=== PATIENT | female | born 1965 | race Caucasian/White ===

== ENCOUNTER 2016-08-19 18:49 | Inpatient (IN) | payer OTHER, SELFPAY ==
[~2016-08-19] VITALS: Ht 177.8 cm; Wt 98.0 kg
--- NOTE | ~2016-08-19 | HP ---
ADMIT: 08/19/2016 RM/LOC: 504 [facility] MR#: [id number] [address] [address] CLAUDIA CARY [address] [place] [address] History and Physical SEX: F AGE: 51 : 1965 DATE OF SERVICE: 08/20/2016 CHIEF COMPLAINT: Right medial ankle swelling, pain, and redness. HISTORY OF PRESENT ILLNESS: Claudia is a very pleasant 51-year-old female, who presented to the [facility] Emergency Department with approximately a week of progressive worsening swelling, redness, and pain, and again with redness extending up her medial calf. This all started a week ago when she was bit in her backyard by a strange dog. She began having fevers in the last couple of days and again noticed redness streaking up her calf. She was subsequently admitted for a cellulitis. PAST MEDICAL HISTORY: She has impaired fasting glucose, insomnia, and depression. ALLERGIES: NO KNOWN MEDICAL ALLERGIES. SOCIAL HISTORY: She is a nonsmoker. Denies any alcohol or recreational drug use. PAST SURGICAL HISTORY: Noncontributory. FAMILY HISTORY: Noncontributory. MEDICATIONS: Her outpatient medications include: 1. Metformin 500 mg daily. 2. Trazodone 100 mg at bedtime. 3. Effexor 225 mg daily. 4. Lipitor at bedtime. REVIEW OF SYSTEMS: As per HPI. All others reviewed and were negative. PHYSICAL EXAMINATION: VITAL SIGNS: Blood pressure is 112/77, pulse 73, respirations 16, temp 97.7, O2 saturation is 98% on room air. GENERAL: Awake, alert, no acute distress. Comfortable in a hospital bed. HEENT: Normocephalic, atraumatic. NECK: Supple. No lymphadenopathy. No thyromegaly. HEART: Regular rate and rhythm. No murmurs, gallops, or rubs. LUNGS: Clear to auscultation bilaterally. EXTREMITIES: Her right medial ankle has a fairly large area of fluctuance, identified right over the posterior tibial region of her malleolus with surrounding erythema measuring approximately 8 cm to 10 cm. Per Claudia's report, this looks significantly better than when she was admitted, and the redness streaking up her calf is essentially gone. She has been on Zosyn in the overnight. The area of greatest fluctuance was identified, and the abscess was anesthetized with 1% lidocaine without epinephrine. The skin was then cleansed with Betadine and the abscess cavity entered very carefully with an ADMIT: 08/19/2016 RM/LOC: 504 [facility] MR#: [id number] [address] [place] [id number] LUIS DANIELCLAUDIA Duarte [address] [place] [address] History and Physical SEX: F AGE: 51 : 1965 #11 blade yielding a large amount of cloudy purulent fluid. The abscess cavity was gently expressed and the cavity irrigated with copious amounts of saline. The wound was then packed with gauze and a pressure dressing applied. Wound culture was obtained. LABORATORY AND X-RAY DATA: Hemoglobin A1c was 5.5. CBC this morning shows a white count of 5.6, hemoglobin 11.4, platelet count of 340. Procalcitonin 0.05. CMP remarkable only for an albumin of 2.6 and glucose of 120. CRP was 3.63. X-ray of the ankle done through the Emergency Department showed no acute findings of the ankle, probable old avulsion fracture at the level of the lateral malleolus. ASSESSMENT: Right medial malleolus abscess secondary to dog bite, status post I and D and wound pack. PLAN: Plan today will be to keep Claudia on the Zosyn as she states clinically much of this is improving already. We will await the wound culture, tailor her antibiotics to orals as soon as possible. I will plan on managing this abscess cavity as an outpatient. Jabari Shepherd MD/ blayne JOB #: [id number] CC: Jabari Shepherd, Attending Physician Jabari Shepherd, Family Physician
--- NOTE | 2016-08-20 01:03 | ER ---
ADMIT: 08/19/2016 RM/LOC: ER [facility] MR#: [id number] [address] [address] TOMAS CARY [address] [place] [address] Emergency Room Report SEX: F AGE: 51 : 1965 DATE: 08/19/2016 HISTORY OF PRESENT ILLNESS: The patient is a 51-year-old female with past medical history of diabetic came to the ER with chief complaint of right ankle swelling and the right leg swelling and erythema and pain and fever, status post dog bite to the right leg and right ankle a week ago. The patient states she was bitten by a dog and at first there were some erythematous area, which extended from the ankle close to the knee and then it decreased and got close to the ankle erythema, but she noticed some fever developed and some induration and swelling in the medial malleolus questionable for pocket of pus versus induration. The patient complains of pain in the right ankle, but can do range of motion actively and passively. The patient has a history of diabetes and is on metformin. PHYSICAL EXAMINATION: VITAL SIGNS: The patient had temperature of 100.5, and heart rate was 73. The patient received Tylenol in the ER, the patient was in no obvious distress. HEAD AND NECK: Noncontributory. CHEST: Clear. ABDOMEN: Soft. EXTREMITIES: The patient had erythema in the dorsum of the right ankle extending to medial and lateral malleolus mostly on the medial, and there is some induration and swelling of the medial malleolus, the patient can do normal range of motion. Peripheral pulses are normal and capillary filling are normal. There were some puncture wound, dog bite wound in the medial malleolus, dorsum of the right foot and also proximal anterior leg. X-ray of the leg did not show any osteomyelitis or subcutaneous air or other fractures or pathologies, the patient's vaccination was not up-to-date and received tetanus shot in the ER, ESR was 57, CRP was 5.8 with WBC of 6.4 and lactic acid of 1.4, and the patient received 1 dose of Zosyn in the ER. The patient was admitted for further followups and treatment of right ankle cellulitis status post dog bite wound. Giacomo Barreto MD/ blayne JOB #: [id number] CC: Shashi Arriaza MD, Attending Physician Jabari Shepherd MD, Family Physician
[2016-08-22] MEDS ORDERED: GLUCOPHAGE-DPS500 MG PO (16:18)
[2016-08-22] MEDS ORDERED: ULTRAM DPS50 MG PO (16:19)
[2016-08-22] MEDS ORDERED: MOTRIN-DPS800 MG PO (16:19)
[2016-08-22] MEDS ORDERED: LIPITOR20 MG PO (16:19)
[2016-08-22] MEDS ORDERED: TYLENOL DPS325 MG PO (16:19)
[2016-08-22] MEDS ORDERED: EFFEXOR DPS75 MG PO (16:19)
[2016-08-22] MEDS ORDERED: DESYREL DPS100 MG PO (16:19)
[2016-08-22] MEDS ORDERED: CLEOCIN HCL300 MG PO (16:20)
[2016-08-22] MEDS ORDERED: AMOX TR-K CLV1 EAC4 PO (16:20)
--- NOTE | 2016-08-29 08:52 | DS ---
ADMIT: 08/19/2016 RM/LOC: 504 [facility] MR#: [id number] [address] [address] CLAUDIA CARY [address] [place] [address] Discharge Summary SEX: F AGE: 51 : 1965 ADMISSION DATE: 08/19/2016 DISCHARGE DATE: 08/21/2016 ADMITTING DIAGNOSIS: Right ankle cellulitis and abscess. DISCHARGE DIAGNOSIS: Right ankle cellulitis and abscess. CONSULTATIONS: None. PROCEDURES: Bedside irrigation and debridement, incision and debridement of a right medial malleolus abscess on 08/20/2016. HISTORY AND PHYSICAL EXAM: Claudia is a very pleasant, 51-year-old female who presented to [facility] Emergency Department with a week of progressively worsening swelling, redness, and pain extending up her medial calf. It all started after she was bitten in her backyard by a strange dog. She began having fevers, redness, and streaking up her calf. She was admitted for cellulitis. HOSPITAL COURSE: She was started on intravenous Zosyn and the morning following admission, the decision was made to do a bedside irrigation and incision and debridement of the abscess cavity. This resulted in a large amount of purulent fluid. The wound was packed. She was maintained on Zosyn. By the morning of 08/21/2016, she was felt safe for discharge with further management as an outpatient. DISCHARGE MEDICATIONS: She will be maintained on her home medications with the addition of: 1. Ultram 50 mg q.i.d. 2. Motrin 800 mg t.i.d. p.r.n. pain. 3. Augmentin 875 mg p.o. b.i.d. 4. Clindamycin 300 mg t.i.d. The antibiotics will be for 10 days. FOLLOWUP: She is to follow up with me on Monday for a wound pack and recheck. She is advised that should her leg worsen, become more red, more swollen, more drainage from her wound, or should she have fevers, she would need to be seen in the clinic sooner than Monday. Jabari Shepherd MD/ jade JOB #: [id number] CC: Jabari Shepherd MD, Attending Physician Jabari Shepherd MD, Family Physician
== END 2016-08-21 11:37 | disposition home or self-care (01) | DRG 603 ==
LOC: ER 18:49 → 5MS 21:40
PROVIDERS: ADMIT Family Medicine
DX: L02.415 Cutaneous abscess of right lower limb (principal); S81.831A Puncture wound without foreign body, right lower leg, initial encounter; F32.9 Major depressive disorder, single episode, unspecified; L03.115 Cellulitis of right lower limb; E11.9 Type 2 diabetes mellitus without complications; S91.031A Puncture wound without foreign body, right ankle, initial encounter; S91.331A Puncture wound without foreign body, right foot, initial encounter; G47.00 Insomnia, unspecified; W54.0XXA Bitten by dog, initial encounter; Z79.84 Long term (current) use of oral hypoglycemic drugs